=== PATIENT | male | born 1985 | race Caucasian/White ===

== ENCOUNTER → 2017-04-16 | Outpatient (CLI) | payer OTHER ==
--- NOTE | 2017-04-17 07:27 | REP ---
RIGHT RIB SERIES: Five views including PA chest. HISTORY: Rib injury. FINDINGS: PA chest radiograph shows no evidence of pneumothorax or hydrothorax. Mediastinum is not widened. Heart is not enlarged. There is a 9 mm nodular density in the right base consistent with a granuloma. Lung kirby are otherwise clear. Multiple views of the right ribcage show no evidence of rib fracture or incidental bony destructive lesion. IMPRESSION: 9 mm nodule right base consistent with granuloma. Otherwise negative right rib views. Signed by Facundo Navarrete MD 04/17/2017 09:19 A
== END ==
LOC: M WUC 16:37
PROVIDERS: ATTEND Physician Assistant
DX: S20.211A Contusion of right front wall of thorax, initial encounter (principal); X58.XXXA Exposure to other specified factors, initial encounter; Y92.89 Other specified places as the place of occurrence of the external cause; Y93.89 Activity, other specified; Y99.8 Other external cause status; R91.8 Other nonspecific abnormal finding of lung field

== ENCOUNTER → 2018-11-22 | Outpatient (CLI) | payer OTHER ==
--- NOTE | 2018-11-23 03:35 | REP ---
Clinical: Left lower quadrant pain Technique: Real time aguiar scale and color evaluation using linear high frequency transducer. Findings: Ultrasound examination of the left groin was performed. No hernia. No adenopathy. No abnormal fluid collection identified. The spermatic cord appears moderately prominent suggesting early varicoceles which increased on Valsalva and measure up to approximately 3.2 mm diameter. Impression: 1. No hernia. 2. Prominent spermatic cord with early varicocele formation suggested. Electronically Signed by Arnoldo Adams MD 11/23/2018 03:26 A
== END ==
LOC: M RAD 16:07
PROVIDERS: ATTEND Physician Assistant
DX: R10.32 Left lower quadrant pain (principal)

== ENCOUNTER → 2020-03-20 | Outpatient (CLI) | payer OTHER ==
--- NOTE | 2020-03-30 11:00 | REP ---
LUMBAR SPINE SERIES: 5-VIEWS HISTORY: Muscle strain. Low back pain. FINDINGS: There is sacralization of the L5 transverse processes bilaterally, left more so than right. A spina bifida occulta is noted at L5. Small ribs are seen at T12. There appear to be pars defects bilaterally at L5, but there is no evidence of spondylolisthesis. Pedicles and posterior elements are otherwise intact. There is degenerative disc disease with spurring at the L1-2 disc, which is somewhat narrowed. Discogenic spurring is noted anteriorly and along the left lateral border at L1-2. No bony destructive lesion is seen. Sacrum and sacroiliac (SI) joints are intact. Psoas margins are symmetric. IMPRESSION: * Degenerative disc changes at L1-2. * Transitionalized lumbosacral junction. No spondylolysis or spondylolisthesis. MTDD
== END ==
LOC: M WUC 09:54
PROVIDERS: ATTEND Physician Assistant
DX: S39.012A Strain of muscle, fascia and tendon of lower back, initial encounter (principal); X58.XXXA Exposure to other specified factors, initial encounter; Y92.9 Unspecified place or not applicable; M51.36 Other intervertebral disc degeneration, lumbar region

== ENCOUNTER → 2023-07-20 | Outpatient (CLI) | payer OTHER ==
[~2023-07-20] MED LIST: CEPH500C PO; LEXA1TAB
== END ==
LOC: M RAD 10:08
PROVIDERS: ATTEND Nurse Practitioner Family
DX: N50.819 Testicular pain, unspecified (principal)